=== PATIENT | female | born 1965 | race Caucasian/White ===

== ENCOUNTER 2020-04-11 12:05 | Emergency (ER) | payer MEDICAID ==
[~2020-04-11] VITALS: Ht 152.4 cm; Wt 62.0 kg
[2020-04-11] MEDS ORDERED: BACITRACIN ZINC OINT UDPKT TOP ONE (15:00)
[2020-04-11 15:56] VITALS: BP 129/58
== END 2020-04-11 15:58 | disposition home or self-care (01) ==
LOC: ER 12:05
DX: S81.801A Unspecified open wound, right lower leg, initial encounter (principal); I51.9 Heart disease, unspecified; W10.9XXA Fall (on) (from) unspecified stairs and steps, initial encounter; Y93.9 Activity, unspecified; Y92.9 Unspecified place or not applicable; Z95.0 Presence of cardiac pacemaker
CPT/HCPCS: 99283

== ENCOUNTER 2020-06-20 15:57 | Emergency (ER) | payer MEDICAID ==
[~2020-06-20] VITALS: Ht 167.6 cm; Wt 66.0 kg
[2020-06-20 16:16] VITALS: BP 129/64
[2020-06-20] MEDS ORDERED: ACETAMINOPHEN 500MG TABLET PO ONE (17:00)
== END 2020-06-20 17:05 | disposition home or self-care (01) ==
LOC: ER 15:57
DX: M25.511 Pain in right shoulder (principal); I51.9 Heart disease, unspecified; W01.0XXA Fall on same level from slipping, tripping and stumbling without subsequent striking against object, initial encounter; Y93.9 Activity, unspecified; Y92.89 Other specified places as the place of occurrence of the external cause; Z95.0 Presence of cardiac pacemaker
CPT/HCPCS: 99282

== ENCOUNTER 2020-09-02 10:08 | Emergency (ER) | payer MEDICAID ==
[~2020-09-02] VITALS: Ht 152.4 cm; Wt 62.5 kg
[2020-09-02] MEDS ORDERED: ONDANSETRON HCL 4MG/2ML INJ IV STA (10:29)
[2020-09-02] MEDS ORDERED: MORPHINE SULFATE 4 MG/ML CPJ (NOT FOR IM USE) IV STA (10:29)
[2020-09-02] MEDS ORDERED: SODIUM CHLORIDE 0.9% 1,000 ML IV ONE (10:30)
[2020-09-02 10:56] LABS: BASOPHILS % 0.9 % (0.0-2.0); EOSINOPHILS % 0.9 % (0.0-5.0); HEMATOCRIT. 44.6 % (36.0-48.0); HEMOGLOBIN. 15.3 g/dL (12.0-16.0); LYMPHOCYTES % 23.4 % (20.0-50.0); MEAN CORPUSCULAR HEMOGLOBIN 30.5 pg (28.0-32.0); MEAN CORPUSCULAR VOLUME 88.9 fL (81.0-99.0); MEAN PLATELET VOLUME 7.8 fl (7.4-10.4); MONOCYTES % 8.4 % (2.0-8.0); NEUTROPHILS % 66.4 % (40.0-76.0); PLATELET 223 x1000/uL (130-400); RED BLOOD CELL COUNT 5.01 mill/uL (4.2-5.4); RED CELL DISTRIBUTION WIDTH 14.1 % (11.6-14.6)
[2020-09-02 11:04] LABS: CHLORIDE 108 mEq/L (98-107)
[2020-09-02 11:41] LABS: PARTIAL THROMBOPLASTIN TIME 28.8 sec (23.4-31.0); PROTHROMBIN TIME 10.3 sec (9.6-11.0)
[2020-09-02] MEDS ORDERED: HYDROCODONE/ACETAMINOPHEN 5/325MG TABLET PO ONE (12:45)
[2020-09-02 14:19] VITALS: BP 119/69
== END 2020-09-02 14:24 | disposition home or self-care (01) ==
LOC: ER 10:08 → EDBEDREQ 10:32 → ER 14:24 → CANBEDREQ 20:12
DX: S52.124A Nondisplaced fracture of head of right radius, initial encounter for closed fracture (principal); S80.211A Abrasion, right knee, initial encounter; I25.10 Atherosclerotic heart disease of native coronary artery without angina pectoris; Z95.0 Presence of cardiac pacemaker; W01.0XXA Fall on same level from slipping, tripping and stumbling without subsequent striking against object, initial encounter; Y93.89 Activity, other specified; Y92.018 Other place in single-family (private) house as the place of occurrence of the external cause
CPT/HCPCS: 29125; 36415; 71045; 73080; 73560; 80053; 83880; 84484; 85025; 85610; 85730; 93005; 99285; J7030

== ENCOUNTER 2022-07-21 02:51 | Emergency (ER) | payer MEDICAID, MEDICARE ==
[~2022-07-21] VITALS: Ht 152.4 cm; Wt 63.0 kg
[2022-07-21] MEDS ORDERED: IBUPROFEN 600MG TABLET PO ONE (05:30)
[2022-07-21] MEDS ORDERED: IBUP-2029 MT (06:30)
[2022-07-21 06:56] VITALS: BP 128/77
== END 2022-07-21 06:57 | disposition home or self-care (01) ==
LOC: ER 02:51
DX: S82.401A Unspecified fracture of shaft of right fibula, initial encounter for closed fracture (principal); M25.572 Pain in left ankle and joints of left foot; M25.571 Pain in right ankle and joints of right foot; I10 Essential (primary) hypertension; E78.00 Pure hypercholesterolemia, unspecified; W18.30XA Fall on same level, unspecified, initial encounter; Y93.89 Activity, other specified; Y92.89 Other specified places as the place of occurrence of the external cause; Y99.8 Other external cause status
CPT/HCPCS: 29515; 73610; 99283